=== PATIENT | male | born 1985 | race American Indian/Alaskan Native ===

== ENCOUNTER 2017-02-25 09:55 | Day surgery (SDC) | payer OTHER ==
[2017-02-25 11:24] VITALS: BMI 39.0
[2017-02-25] MEDS ORDERED: Lidocaine 1% Inj (20ml) ONE ×2 (12:24→13:24)
[2017-02-25] MEDS ORDERED: Bupivacaine 0.5% Inj(30mL) ONE (12:25)
[2017-02-25] MEDS ORDERED: ceFAZolin IV 1 gm in Dextrose 0 GM/0 ML BAG IVPB ONE (12:25)
[2017-02-25] MEDS ORDERED: Propofol 10 mg/ml Inj (20 ML) ONE (12:26)
[2017-02-25] MEDS ORDERED: Midazolam 2 MG/2 ML VIAL ONE (12:26)
[2017-02-25] MEDS ORDERED: Lactated Ringer's 1,000 ML IV ONE (12:59)
[2017-02-25] MEDS ORDERED: Succinylcholine 200 mg/10 ml Inj IV ONE (13:19)
--- NOTE | 2017-02-25 14:08 | CP.PCM.DIS ---
Provider - Provider Attending physician: Glen Salmon MD Primary care physician: Glen Salmon MD Time Spent in preparation of Discharge (in minutes): 5 Discharge Plan - Follow Up Plan Condition: GOOD Disposition: HOME/ ROUTINE Referrals: Glen Salmon MD [Primary Care Provider] -
--- NOTE | 2017-02-25 14:08 | PCM.SURG1 ---
Surgeon's Initial Post Op Note - Surgeon's Notes Surgeon: maxx Is Consultant: none Type of Anesthesia: General LMA Pre-Operative Diagnosis: left hand contracture Operative Findings: see dictation Post-Operative Diagnosis: same Operation Performed: BONNIE thumb. index, middle finger. tenolysis middle finger Specimen/Specimens Removed: none Estimated Blood Loss: EBL {In ML}: 0 Date of Surgery/Procedure: 02/25/17 Time of Surgery/Procedure: 01:00
[2017-02-25] MEDS ORDERED: Lactated Ringer's 1,000 ML IV SCH (14:15)
[2017-02-25 15:13] VITALS: RESP 20
[2017-02-25 16:11] VITALS: BP 115/68; PULSE 83; TEMP 98.4; O2SAT 98
--- NOTE | 2017-03-04 00:18 | OP ---
PROCEDURE DATE: 02/25/2017 PREOPERATIVE DIAGNOSES: 1. 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 2. Left middle finger extensor tendon tenosynovitis. POSTOPERATIVE DIAGNOSES: 1. 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 2. Left middle finger extensor tendon tenosynovitis. PROCEDURES: 1. Left middle finger extensor tendon tenolysis, [id number]. 2. Manipulation under anesthesia, left thumb interphalangeal joint, 88324. 3. Manipulation under anesthesia, left index finger proximal interphalangeal joint, 57388. 4. Manipulation under anesthesia, left index finger distal interphalangeal joint, 90859. 5. Manipulation under anesthesia, left middle finger proximal interphalangeal joint, [id number] 6. manipulation under anesthesia of left middle finger distal interphalangeal joint, [id number]. SURGEON: Glen Salmon MD DIRECTOR OF CURRICULUM AND INSTRUCTION: None. TYPE OF ANESTHESIA: Local with sedation. ESTIMATED BLOOD LOSS: Minimal. COMPLICATIONS: None. DISPOSITION: Stable to recovery room. INDICATION: The patient with history of problems with left hand with residual stiffness and contracture, failure of conservative therapy and progression of physical therapy. He elected to undergo the above procedure. Risks and benefits of the procedure were explained. Risks included, but not limited to bleeding, infection, tendon, nerve and vessel injury, instability, chronic pain, potential need for additional surgery in the future, and complications from anesthesia. The patient understood the above risks and elected to proceed. DESCRIPTION OF PROCEDURE: The patient was brought into the operating room and placed supine on the operating room table. After adequate regional anesthesia was given, the patient's left upper extremity was prepped and draped in the standard surgical fashion. A time-out was performed. An incision was outlined over the dorsum of the third PIP joint over the old laceration site. Initially, manipulation under anesthesia was performed of the left thumb IP joint, index finger PIP and DIP joints, and middle finger PIP and DIP joints with steady force. Hyperflexion around the digits was performed. There was breakage of scar tissue, and the range of motion of the digits improved from 10 degrees to 45 degrees. In the index finger, the active range of motion improved from 25 degrees to 90 degrees. The index finger IP range of motion improved from 25 degrees to 45 degrees. Next, an incision was made over the dorsum of the third DIP joint. The extensor tendon was identified and intact. Tenosynovectomy and tenolysis was performed of the extensor tendon with sharp and blunt dissections and use of a [place]. All scar tissue was dissected out and removed. The PIP improved from 20 degrees to 90 degrees flexion. The patient was able to make a fist intraoperatively. The tourniquet was then deflated, hemostasis was obtained, and the wound was closed with 4-0 nylon in interrupted sutures. Sterile dressing was applied. The patient will start range of motion exercises on the same day and follow up with me in one week for re-evaluation. He was returned to recovery room in excellent condition. Glen Salmon MD [facility]
== END 2017-02-25 16:30 | disposition home or self-care (01) ==
LOC: H.OPSURG 09:55
PROVIDERS: ATTEND Orthopaedic Surgery
DX: M24.542 Contracture, left hand (principal); G47.33 Obstructive sleep apnea (adult) (pediatric)
CPT/HCPCS: 26340; 26445; J0330; J2001; J2250; J2704; J3010; J7030; J7120